=== PATIENT | female | born 1980 | race African-American/Black ===

== ENCOUNTER 2020-06-11 05:59 | Inpatient (IN) ==
[2020-06-11] MEDS ORDERED: LACTATED RINGERS 1,000 ML IV SCH (06:30)
[2020-06-11] MEDS ORDERED: ceFAZolin 2,000 MG in PREMIX 1 EACH IV ONE (06:48)
[2020-06-11] MEDS ORDERED: HYDROmorphone 2 MG/1 ML VIAL ONE ×2 (09:29→10:45)
[2020-06-11] MEDS ORDERED: ONDANSETRON 4 MG/2 ML VIAL IV PRN ×2 (09:36→10:16)
[2020-06-11] MEDS ORDERED: ACETAMINOPHEN 325 MG TABLET PO PRN (09:36)
[2020-06-11] MEDS ORDERED: SEVOFLURANE 1 UNIT/15 MINUTE INH ONE (10:07)
[2020-06-11] MEDS ORDERED: fentaNYL 100 MCG/2 ML VIAL ONE (10:07)
[2020-06-11] MEDS ORDERED: MIDAZOLAM 2 MG/2 ML VIAL ONE (10:07)
[2020-06-11] MEDS ORDERED: LIDOCAINE 2% 5 ML VIAL ONE (10:07)
[2020-06-11] MEDS ORDERED: DEXAMETHASONE 4 MG/1 ML VIAL ONE (10:08)
[2020-06-11] MEDS ORDERED: ONDANSETRON 4 MG/2 ML VIAL ONE (10:08)
[2020-06-11] MEDS ORDERED: ROCURONIUM 100 MG/10 ML VIAL IV ONE (10:08)
[2020-06-11] MEDS ORDERED: PHENYLEPHRINE 1 MG/10 ML SYRINGE IV ONE (10:08)
[2020-06-11] MEDS ORDERED: GLYCOPYRROLATE 0.4 MG/2 ML VIAL ONE (10:08)
[2020-06-11] MEDS ORDERED: NEOSTIGMINE 10 MG/10 ML VIAL ONE (10:08)
[2020-06-11] MEDS ORDERED: propofoL 200 MG/20 ML VIAL IV ONE (10:08)
[2020-06-11] MEDS ORDERED: LACTATED RINGERS 1,000 ML IV ONE (10:09)
[2020-06-11] MEDS ORDERED: MEPERIDINE 25 MG/1 ML VIAL IV PRN (10:16)
[2020-06-11 10:32] LABS: Mucus,Urine Occasional /LPF (Occasional); RBC,Urine <1 /HPF (0-4); Squamous Epithelial Cell,Urine Occasional /HPF (0-10); WBC,Urine <1 /HPF (0-6)
[2020-06-11 10:33] LABS: Bilirubin,Urine Negative (Negative); Glucose,Urine (UA) Negative (Negative); Ketones,Urine Negative (Negative); Nitrite,Urine Negative (Negative); Protein,Urine Negative; Urine Appearance Clear (Clear); Urine Color Yellow (Yellow)
[2020-06-11 10:34] LABS: Blood, Urine Trace mg/dL (Negative); Urine Urobilinogen < 2.0 EU/DL (0.2-1.0)
[2020-06-11] MEDS: HYDROmorphone 2 MG/1 ML VIAL IV PRN ×6 (10:45→22:21)
[2020-06-11] MEDS: DEXTROSE 5% LACTATED RINGERS 1,000 ML IV SCH (12:58)
[2020-06-11] MEDS: DOCUSATE SODIUM 100 MG CAPSULE PO SCH (20:35)
[2020-06-12] MEDS: DEXTROSE 5% LACTATED RINGERS 1,000 ML IV SCH ×2 (01:53→15:01)
[2020-06-12 04:20] LABS: Basophils % 0.2 % (0.0-0.8); Eosinophils % 0.1 % (0.00-10.9); Hematocrit 29.5 VOL% (35.7-47.0); Hemoglobin 9.4 GM/DL (12.0-16.0); Immature Granulocytes % 0.2 %; Immature Granulocytes Absolute 0.02 #; Lymphocytes # 1.7 10*3/uL (1.4-4.0); Lymphocytes % 18.2 % (21.3-54.2); Mean Corpuscular HGB Conc 31.9 GM/DL (32-36); Mean Corpuscular Volume 86.5 FL (87-102); Mean Platelet Volume 10.9 FL (9.6-12.0); Monocytes % 6.7 % (1.7-12.7); Neutrophils % 74.6 % (38.7-73.9); Platelet Count 182 T/CUMM (130-400); Red Blood Count 3.41 MC/CUMM (3.8-5.5); Red Cell Distribution Width 12.4 % (9.3-17.3); White Blood Count 9.4 T/CUMM (4-12)
[2020-06-12 04:34] LABS: Osmolality,Calculated 275.5 MOS/KG (273-304)
[2020-06-12] MEDS: DOCUSATE SODIUM 100 MG CAPSULE PO SCH ×2 (08:09→20:38)
[2020-06-12] MEDS: PANTOPRAZOLE 40 MG TABLET PO SCH (08:09)
[2020-06-12] MEDS: ENOXAPARIN 40 MG/0.4 ML SYRINGE SUBCUT SCH (15:00)
[2020-06-13] MEDS: DEXTROSE 5% LACTATED RINGERS 1,000 ML IV SCH ×2 (05:01→18:23)
[2020-06-13 05:28] LABS: Basophils % 0.5 % (0.0-0.8); Eosinophils # 0.1 10*3/uL (0.0-0.87); Eosinophils % 1.1 % (0.00-10.9); Hematocrit 28.6 VOL% (35.7-47.0); Hemoglobin 9.1 GM/DL (12.0-16.0); Immature Granulocytes % 0.2 %; Immature Granulocytes Absolute 0.01 #; Lymphocytes # 2.2 10*3/uL (1.4-4.0); Mean Corpuscular HGB Conc 31.8 GM/DL (32-36); Mean Corpuscular Volume 86.4 FL (87-102); Mean Platelet Volume 11.5 FL (9.6-12.0); Monocytes % 8.6 % (1.7-12.7); Neutrophils % 50.6 % (38.7-73.9); Platelet Count 114 T/CUMM (130-400); Red Blood Count 3.31 MC/CUMM (3.8-5.5); Red Cell Distribution Width 12.4 % (9.3-17.3); White Blood Count 5.6 T/CUMM (4-12)
[2020-06-13 05:57] LABS: Calcium 7.9 MG/DL (8.5-10.1); Osmolality,Calculated 276.4 MOS/KG (273-304)
[2020-06-13] MEDS ORDERED: POTASSIUM CHLORIDE RIDER 10 MEQ in PREMIX 1 EACH IV PRN (07:16)
[2020-06-13] MEDS: DOCUSATE SODIUM 100 MG CAPSULE PO SCH ×2 (08:09→20:38)
[2020-06-13] MEDS: POTASSIUM CHLORIDE 20 MEQ TABLET PO PRN ×3 (08:09→14:40)
[2020-06-13] MEDS: PANTOPRAZOLE 40 MG TABLET PO SCH (08:09)
[2020-06-13] MEDS: ENOXAPARIN 40 MG/0.4 ML SYRINGE SUBCUT SCH (14:40)
[2020-06-14 07:57] VITALS: BP 132/82
[2020-06-14] MEDS: PANTOPRAZOLE 40 MG TABLET PO SCH (08:03)
[2020-06-14] MEDS: DOCUSATE SODIUM 100 MG CAPSULE PO SCH (08:03)
[2020-06-14] MEDS: DEXTROSE 5% LACTATED RINGERS 1,000 ML IV SCH (08:47)
== END 2020-06-14 11:40 | disposition home or self-care (01) | DRG 416 ==
LOC: N.OR 05:59 → N.SDSINP 06:03 → N.4E 11:10
PROVIDERS: ADMIT Student in an Organized Health Care Education/Training Program; ATTEND Student in an Organized Health Care Education/Training Program
PROC: LAPCHOL (2020-06-11 07:00)